=== PATIENT | female | born 1990 | race Caucasian/White ===

== ENCOUNTER 2016-10-09 00:51 | Emergency (ER) | payer SELFPAY ==
--- NOTE | 2016-10-09 02:02 | ED ORDER SUMMARY ---
..... Patient: BENJIE PIERCE OrderSheet [facility] VisitID: [id number] [address] [place] [address] 26y, F Registration Date/Time: 10/09/2016 ORDER SHEET Weight: 77.1 kg Allergies: No Known Drug Allergy GENERAL ORDERS: UA-Culture if indicated Urgent (:10/09/2016 Beck Pierce) (Ack 1:26 Arturo) (1:36 Isabel R.N.) Urine Drug Screen Urgent (:10/09/2016 Beck Pierce) (Ack 1:26 Arturo) (1:36 Isabel R.N.) MEDICATION ORDERS: IV FLUIDS: ORDER SHEET NOTES: [Electronically signed by Avelino Cardenas Dr. (02:03 10/09/2016)] [Electronically signed by Rajesh Ruiz R.N. (06:55 10/09/2016)] [Electronically locked/signed by Rajesh Ruiz R.N. (06:55 10/09/2016)]
--- NOTE | 2016-10-09 02:02 | ED CLINICAL REPORT ---
Clinical Report - Physicians/Mid Levels [facility] [address] [place] [place] [address] 10/09/2016 0:51 Patient: BENJIE PIERCE Time Seen: 00:59; initial patient contact. Arrived- By ambulance. Historian- patient and EMS personnel. HISTORY OF PRESENT ILLNESS Chief Complaint: INTOXICATED. Symptoms started today. Substances abused: Alcohol. Last drink just prior to arrival. No nausea, vomiting, abdominal pain or agitation. The symptoms are described as moderate. No injuries noted. Similar symptoms previously: None. Recent medical care: Not recently seen/assessed. REVIEW OF SYSTEMS No headache, chest pain, back pain, neck pain or alteration in mental status. No dizziness or head injury. All systems otherwise negative, except as recorded above. PAST HISTORY Negative. Problems: no known problems. Surgeries: No history of previous surgery. Additional Surgeries: no known surgeries. Medications: None. Allergies: No Known Drug Allergy. SOCIAL HISTORY Never smoker. Regular alcohol use. No drug use. Has social support. Has place to stay. ADDITIONAL NOTES The nursing notes have been reviewed. PHYSICAL EXAM Vital Signs: 10/09/2016 00:54 BP: 117/76. HR: 74. RR: 14. O2 saturation: 100%. Temp: 98.4 F. Pain level now: 0/10. Have been reviewed as normal. Appearance: Alert. Oriented X3. No acute distress. Head: Head atraumatic. ENT: Airway intact. Dry mucous membranes present. Neck: Normal inspection. Neck supple. CVS: Tachycardia. Heart sounds normal. Rhythm normal. Respiratory: No respiratory distress. Breath sounds normal. Back: Normal inspection. Skin: Skin warm and dry. Normal skin color. No rash. Neuro: Mildly altered mental status. (Intoxicated). LABS, X-RAYS, AND EKG Laboratory Tests: UA-Culture if indicated: (REILLY: 10/09/2016 01:35) ( MsgRcvd 10/09/2016 01:49) Final results Test Result Flag Units (Reference) URINE COLOR YELLOW URINE APPEARANCE CLEAR URINE GLUCOSE NEGATIVE (NEGATIVE) URINE BILIRUBIN NEGATIVE (NEGATIVE) URINE KETONE NEGATIVE (NEGATIVE) URINE SPECIFIC GRAVITY <= 1.005 L (1.010-1.030) URINE PH 6.0 (5.0-8.0) URINE PROTEIN NEGATIVE (NEGATIVE) URINE UROBILINOGEN 0.2 EU/dL (0.2-1.0) URINE NITRITE NEGATIVE (NEGATIVE) URINE BLOOD NEGATIVE (NEGATIVE) URINE LEUK ESTERASE POSITIVE (NEGATIVE) URINE RBC 0-1 rbc/hpf (0-1) URINE WBC 0-1 wbc/hpf (0-1) URINE EPITHELIAL CELLS 0-1 EPI/hpf (0-5) URINE BACTERIA NONE SEEN (NONE SEEN) URINE COMMENT CULTURE INDICATED URINE CULTURES ARE SET-UP BASED ON THE FOLLOWING CRITERIA:POSITIVE NITRITEPOSITIVE LEUKOCYTE ESTERASEGREATER THAN 10 WHITE BLOOD CELLSMODERATE (2+) OR GREATER BACTERIA Urine Drug Screen: (REILLY: 10/09/2016 01:35) ( MsgRcvd 10/09/2016 01:54) Final results Test Result Flag Units (Reference) AMPHETAMINE/METHAMPHETAMINE NEGATIVE (NEGATIVE) BARBITURATE NEGATIVE (NEGATIVE) BENZODIAZEPINE NEGATIVE (NEGATIVE) CANNABINOID NEGATIVE (NEGATIVE) COCAINE NEGATIVE (NEGATIVE) ECSTASY NEGATIVE (NEGATIVE) METHADONE NEGATIVE (NEGATIVE) OPIATE NEGATIVE (NEGATIVE) The urine drug screen is a qualitative screening test fordrug overdose and abuse. All screen results should beconsidered as presumptive.Drugs screened for are as follows:BenzodiazepinesCocaineAmphetamines/MetamphetaminesTHC (Tetrahydrocannabinol)OpiatesBarbituratesEcstasyMethadonePositive results are unconfirmed. For confirmation, notifythe lab for the specimen to be sent to the reference lab.All confirmations must be performed by a differentmethodology.The ingestion of natural herbal and plant productscontaining Ephedra/Ephedra metabolites can produce in urineone or more substances capable of cross reacting withamphetamine/methamphetamine immunoassays. These testsprovide a preliminary result only. A more specificalternative chemical method must be used to obtain aconfirmed analytical result. . PROGRESS AND PROCEDURES Disposition: Discharged home in good and improved condition. Condition: good. CLINICAL IMPRESSION Uncomplicated alcohol intoxication. No alcohol intoxication with delirium or alcohol dependence. INSTRUCTIONS No alcohol. Your Current Medications: CONTINUE TAKING THE FOLLOWING MEDICATIONS: None*. Follow-up: Follow up with your doctor as needed. Screening today revealed the patient's blood pressure to be in the normal range. (Electronically signed by Avelino Cardenas Dr. 10/09/2016 2:03)
--- NOTE | 2016-10-09 02:02 | ED NURSING NOTES ---
Clinical Report - Nurses [place] [address] [place] [address] 10/09/2016 0:51 Patient: BENJIE PIERCE TRIAGE Triage time 00:54. Acuity: LEVEL 4. Chief Complaint: DIZZINESS. --00:57 TonyaB, R.N. 00:54 10/09/16. BP: 117/76. HR: 74. RR: 14. O2 saturation: 100%. Temp: 98.4 F. Pain level now: 0/10. --00:57 TonyaB, R.N. Weight: 77.1 kg. Height/Length: 67 inches. BMI: 26.6. --00:56 TonyaB, R.N. Medications None. --00:55 TonyaB, R.N. Allergies No Known Drug Allergy. --00:55 TonyaB, R.N. History Arrived by EMS. Historian: patient. ( pt arrived via ems from [facility] pt was drinking at [facility] and was found slumped over a machine). This started just prior to arrival. 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 PAST MEDICAL HX: Immunizations: up-to-date. Last normal menstrual period was 2 weeks ago. Uses an intrauterine device. SOCIAL HX: Never smoker. Regular alcohol use. No drug use. No infectious disease exposure. SELF HARM ASSESSMENT: A self harm assessment was performed. The patient answered "no" to the question "Have you recently felt down, depressed, or hopeless?", "Have you noticed less interest or pleasure in doing things?", "Do you have thoughts of harming or killing yourself?", "Are you here because you tried to hurt yourself?", "Have you ever tried to hurt yourself before today?", "Have you recently had thoughts about harming or killing others?" and "Do you have any dangerous items in your possession?". FALL RISK ASSESSMENT: Fall risk assessment completed. No fall risk identified. NUTRITIONAL RISK ASSESSMENT: The nutritional risk assessment revealed no deficiencies. FUNCTIONAL ASSESSMENT: Functional assessment: no impairments noted. LEARNING NEEDS ASSESSMENT: The learning needs assessment revealed no barriers. SKIN INTEGRITY ASSESSMENT: Skin integrity risk assessment completed. No skin integrity risk identified. 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 --00:57 Julia Titus PROBLEMS: no known problems. ADDITIONAL SURGERIES: no known surgeries. Interventions ID band on patient. To treatment room. --00:57 Julia Titus PHYSICAL ASSESSMENT To room via stretcher. GENERAL / NEURO / PSYCH: Alert. Oriented X 4. Appears in no acute distress. Mood/affect abnormal. ( pt appears intoxicated). HEENT: Pupils equal, round and reactive to light. No facial asymmetry noted. Mucous membranes are pink. RESPIRATORY: Respirations not labored. Chest nontender. Breath sounds within normal limits. CVS: Normal sinus rhythm noted. Capillary refill less than 2 seconds. Pulses within normal limits. GI / : Abdomen soft and nontender and normal bowel sounds. SKIN: Skin intact. Skin is warm and dry. Normal skin turgor. --00:58 Julia Titus NURSING PROGRESS NOTES BREATHALYZER: Breathalyzer (273). --00:58 Tirso Titus. Pulse oximeter placed on patient. --00:58 Julia Titus 01:25. Care transferred and report received. --01:34 Rajesh Ruiz R.N. 01:[address] [facility] with pt - stand by assist while pt uses BSC. --01:35 Rajesh Ruiz R.N. 01:32. Patient ID band checked for patient name and birthdate: patient confirmed. Clean catch urine collected with return of yellow-colored clear urine; sample sent to lab for urinalysis. Specimen labeled in the presence of the patient. --01:36 Rajesh Ruiz R.N. 02:46. The patient is sleeping. RESPIRATORY: No respiratory distress. SKIN: Skin is warm and dry. Skin color within normal limits. --02:47 Rajesh Ruiz R.N. 02:46 10/09/16. HR: 80. O2 saturation: 97% on room air. --02:47 Rajesh Ruiz R.N. 03:38. The patient is sleeping. RESPIRATORY: No respiratory distress. SKIN: Skin is warm and dry. Skin color within normal limits. --03:39 Rajesh Ruiz R.N. 03:38 10/09/16. HR: 79. O2 saturation: 95%. --03:39 Rajesh Ruiz R.N. 04:41. The patient is sleeping. RESPIRATORY: No respiratory distress. SKIN: Skin is warm and dry. Skin color within normal limits. --04:41 Rajesh Ruiz R.N. 04:40 10/09/16. HR: 77. O2 saturation: 96% on room air. --04:41 Rajesh Ruiz R.N. 05:57. The patient is sleeping. RESPIRATORY: No respiratory distress. SKIN: Skin is warm and dry. Skin color within normal limits. --05:58 Rajesh Ruiz R.N. 05:57 10/09/16. HR: 74. O2 saturation: 98% on room air. --05:58 Rajesh Ruiz R.N. 06:47. The patient is calm and resting quietly. Overall patient status is improved. RESPIRATORY: No respiratory distress. SKIN: Skin is warm and dry. Skin color within normal limits. --06:54 Rajesh Ruiz R.N. DISPOSITION / DISCHARGE Departure time: 06:52. Condition at departure: stable. No learning barriers present. Discharge instructions provided and reviewed with the patient. Patient verbalized understanding. Written instructions provided in Divehi. The patient was discharged home and unaccompanied at time of discharge. She left the Emergency Department ambulatory. FALL RISK ASSESSMENT: Fall risk assessment completed. No fall risk identified. --06:54 Rajesh Ruiz R.N. 06:24 10/09/16. BP: 104/62. HR: 83. RR: 14. O2 saturation: 100% on room air. Pain level now: 0/10. --06:54 Rajesh Riuz R.N. Locked/Released at 10/09/2016 6:55 by Rajesh Ruiz R.N.
--- NOTE | 2016-10-09 02:02 | ED NURSING NOTES ---
Clinical Report - Nurses [place] [address] [place] [address] 10/09/2016 0:51 Patient: BENJIE PIERCE TRIAGE Triage time 00:54. Acuity: LEVEL 4. Chief Complaint: DIZZINESS. --00:57 TonyaB, R.N. 00:54 10/09/16. BP: 117/76. HR: 74. RR: 14. O2 saturation: 100%. Temp: 98.4 F. Pain level now: 0/10. --00:57 TonyaB, R.N. Weight: 77.1 kg. Height/Length: 67 inches. BMI: 26.6. --00:56 TonyaB, R.N. Medications None. --00:55 TonyaB, R.N. Allergies No Known Drug Allergy. --00:55 TonyaB, R.N. History Arrived by EMS. Historian: patient. ( pt arrived via ems from [facility] pt was drinking at [facility] and was found slumped over a machine). This started just prior to arrival. 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 PAST MEDICAL HX: Immunizations: up-to-date. Last normal menstrual period was 2 weeks ago. Uses an intrauterine device. SOCIAL HX: Never smoker. Regular alcohol use. No drug use. No infectious disease exposure. SELF HARM ASSESSMENT: A self harm assessment was performed. The patient answered "no" to the question "Have you recently felt down, depressed, or hopeless?", "Have you noticed less interest or pleasure in doing things?", "Do you have thoughts of harming or killing yourself?", "Are you here because you tried to hurt yourself?", "Have you ever tried to hurt yourself before today?", "Have you recently had thoughts about harming or killing others?" and "Do you have any dangerous items in your possession?". FALL RISK ASSESSMENT: Fall risk assessment completed. No fall risk identified. NUTRITIONAL RISK ASSESSMENT: The nutritional risk assessment revealed no deficiencies. FUNCTIONAL ASSESSMENT: Functional assessment: no impairments noted. LEARNING NEEDS ASSESSMENT: The learning needs assessment revealed no barriers. SKIN INTEGRITY ASSESSMENT: Skin integrity risk assessment completed. No skin integrity risk identified. --00:57 Julia Titus Treatment COLD HEADER: See EMS report. --00:57 Julia Titus PROBLEMS: no known problems. ADDITIONAL SURGERIES: no known surgeries. Interventions ID band on patient. To treatment room. --00:57 Julia Titus PHYSICAL ASSESSMENT To room via stretcher. GENERAL / NEURO / PSYCH: Alert. Oriented X 4. Appears in no acute distress. Mood/affect abnormal. ( pt appears intoxicated). HEENT: Pupils equal, round and reactive to light. No facial asymmetry noted. Mucous membranes are pink. RESPIRATORY: Respirations not labored. Chest nontender. Breath sounds within normal limits. CVS: Normal sinus rhythm noted. Capillary refill less than 2 seconds. Pulses within normal limits. GI / : Abdomen soft and nontender and normal bowel sounds. SKIN: Skin intact. Skin is warm and dry. Normal skin turgor. --00:58 Julia Titus NURSING PROGRESS NOTES BREATHALYZER: Breathalyzer (273). --00:58 Tirso Titus. Pulse oximeter placed on patient. --00:58 Julia Titus 01:25. Care transferred and report received. --01:34 Rajesh Ruiz R.N. 01:28 [facility] with pt - stand by assist while pt uses BSC. --01:35 Rajesh Ruiz R.N. 01:32. Patient ID band checked for patient name and birthdate: patient confirmed. Clean catch urine collected with return of yellow-colored clear urine; sample sent to lab for urinalysis. Specimen labeled in the presence of the patient. --01:36 Rajesh Ruiz R.N. 02:46. The patient is sleeping. RESPIRATORY: No respiratory distress. SKIN: Skin is warm and dry. Skin color within normal limits. --02:47 Rajesh Ruiz R.N. 02:46 10/09/16. HR: 80. O2 saturation: 97% on room air. --02:47 Rajesh Ruiz R.N. 03:38. The patient is sleeping. RESPIRATORY: No respiratory distress. SKIN: Skin is warm and dry. Skin color within normal limits. --03:39 Rajesh Ruiz R.N. 03:38 10/09/16. HR: 79. O2 saturation: 95%. --03:39 Rajesh Ruiz R.N. 04:41. The patient is sleeping. RESPIRATORY: No respiratory distress. SKIN: Skin is warm and dry. Skin color within normal limits. --04:41 Rajesh Ruiz R.N. 04:40 10/09/16. HR: 77. O2 saturation: 96% on room air. --04:41 Rajesh Ruiz R.N. 05:57. The patient is sleeping. RESPIRATORY: No respiratory distress. SKIN: Skin is warm and dry. Skin color within normal limits. --05:58 Rajesh Ruiz R.N. 05:57 10/09/16. HR: 74. O2 saturation: 98% on room air. --05:58 Rajesh Ruiz R.N. 06:47. The patient is calm and resting quietly. Overall patient status is improved. RESPIRATORY: No respiratory distress. SKIN: Skin is warm and dry. Skin color within normal limits. --06:54 Rajesh Ruiz R.N. DISPOSITION / DISCHARGE Departure time: 06:52. Condition at departure: stable. No learning barriers present. Discharge instructions provided and reviewed with the patient. Patient verbalized understanding. Written instructions provided in Swedish. The patient was discharged home and unaccompanied at time of discharge. She left the Emergency Department ambulatory. FALL RISK ASSESSMENT: Fall risk assessment completed. No fall risk identified. --06:54 Rajesh Ruiz R.N. 06:24 10/09/16. BP: 104/62. HR: 83. RR: 14. O2 saturation: 100% on room air. Pain level now: 0/10. --06:54 Rajesh Ruiz R.N. Locked/Released at 10/09/2016 6:55 by Rajesh Ruiz R.N.
--- NOTE | 2016-10-09 02:02 | ED ORDER SUMMARY ---
..... Patient: BENJIE PIERCE OrderSheet [facility] VisitID: [id number] [address] [place] [address] 26y, F Registration Date/Time: 10/09/2016 ORDER SHEET Weight: 77.1 kg Allergies: No Known Drug Allergy GENERAL ORDERS: UA-Culture if indicated Urgent (:10/09/2016 Beck Pierce) (Ack 1:26 Arturo) (1:36 Isabel R.N.) Urine Drug Screen Urgent (:10/09/2016 Beck Pierce) (Ack 1:26 Arturo) (1:36 Isabel R.N.) MEDICATION ORDERS: IV FLUIDS: ORDER SHEET NOTES: [Electronically signed by Avelino Cardenas Dr. (02:03 10/09/2016)] [Electronically signed by Rajesh Ruiz R.N. (06:55 10/09/2016)] [Electronically locked/signed by Rajesh Ruiz R.N. (06:55 10/09/2016)]
--- NOTE | 2016-10-09 06:55 | ED MAR SUMMARY ---
..... Medication Administration Record [facility] [address], [place] [id number] Patient: BENJIE IPERCE Visit ID: [id number] 26y, F Weight: 77.1 kg Height/Length: 67 in BMI: 26.6 ALLERGIES: No Known Drug Allergy
--- NOTE | 2016-10-09 06:55 | ED MED RECONCILIATION SUMMARY ---
Patient: BENJIE PIERCE Medication Reconciliation Report [facility] VisitID: [id number] [address] [place] [address] 26y, F Registration Date/Time: 10/09/2016 Weight: 77.1 kg Height/Length: 67 in. BMI: 26.6 ALLERGIES: No Known Drug Allergy The patient's Home Medications are listed below: NONE. The source(s) of the original Home Medication information: Not obtained. The following Medications were given to the patient in the Emergency Department: None. The following Medications were prescribed to the patient: None.
--- NOTE | 2016-10-09 06:55 | ED MED RECONCILIATION SUMMARY ---
Patient: BENJIE PIERCE Medication Reconciliation Report [facility] VisitID: [id number] [address] [place] [address] 26y, F Registration Date/Time: 10/09/2016 Weight: 77.1 kg Height/Length: 67 in. BMI: 26.6 ALLERGIES: No Known Drug Allergy The patient's Home Medications are listed below: NONE. The source(s) of the original Home Medication information: Not obtained. The following Medications were given to the patient in the Emergency Department: None. The following Medications were prescribed to the patient: None.
--- NOTE | 2016-10-09 06:55 | ED DISCHARGE INSTRUCTIONS ---
Patient: BENJIE PIERCE General Instructions [facility] VisitID: [id number] [place] [address] 26y, F Registration Date/Time: 10/09/2016 Uncomplicated alcohol intoxication. No alcohol intoxication with delirium or alcohol dependence. INSTRUCTIONS No alcohol. Your Current Medications: CONTINUE TAKING THE FOLLOWING MEDICATIONS: None*. Follow-up: Follow up with your doctor as needed. Screening today revealed the patient's blood pressure to be in the normal range. ADDITIONAL INFORMATION Alcohol Intoxication Alcohol intoxication occurs when you drink alcohol faster than your liver can remove it from your system. Alcohol intoxication affects your judgment and coordination. Very high blood alcohol levels can cause coma, very slow breathing and even . If you drink alcohol every day, this may gradually cause permanent damage to your liver, brain, heart, pancreas and other organs. Alcohol use during may cause permanent damage to the growing baby. Home Care: Do not drink any more alcohol. DO NOT DRIVE until all effects of the alcohol have worn off. Get lots of rest over the next few days. Drink plenty of water and other non-alcoholic liquids. Try to eat regular meals. If you have been drinking heavily on a daily basis, you may go through alcohol withdrawl. This is also called the shakes or DTs. The usual symptoms last 3 to 4 days and may include nervousness, shakiness, nausea, sweating or sleeplessness. During this time, it is best that you stay with family or friends who can help and support you. You can also admit yourself to a residential detox program. If your symptoms are severe, contact your doctor for medicines to help. Follow Up: If alcohol is causing a problem in your life, these and other organizations can help you: Alcoholics Anonymous offers support through a self-help fellowship. There are no dues or fees. See the Yellow Pages and call for time and place of meetings. www.aa.org Mary offers support to families of alcohol users. 545.419.8175 www.al-anon.org National [place] On Alcoholism And Drug Dependence 437-793-8442 www.ncadd.org There are also inpatient or residential alcohol detox programs. Check the Internet or phonebook Yellow Pages under Drug Abuse & Treatment Centers. Get Prompt Medical Attention if any of the following occur: there) You have been given the following additional information: Alcohol Intoxication (Electronically signed by Avelino Cardenas Dr. 10/09/2016 2:03)
--- NOTE | 2016-10-09 06:55 | ED MAR SUMMARY ---
..... Medication Administration Record [facility] [address] [place], [place] [id number] Patient: BENJIE PIERCE Visit ID: [id number] 26y, F Weight: 77.1 kg Height/Length: 67 in BMI: 26.6 ALLERGIES: No Known Drug Allergy
--- NOTE | 2016-10-09 06:55 | ED DISCHARGE INSTRUCTIONS ---
Patient: BENJIE PIERCE General Instructions [facility] VisitID: [id number] [place] [address] 26y, F Registration Date/Time: 10/09/2016 Uncomplicated alcohol intoxication. No alcohol intoxication with delirium or alcohol dependence. INSTRUCTIONS No alcohol. Your Current Medications: CONTINUE TAKING THE FOLLOWING MEDICATIONS: None*. Follow-up: Follow up with your doctor as needed. Screening today revealed the patient's blood pressure to be in the normal range. ADDITIONAL INFORMATION Alcohol Intoxication Alcohol intoxication occurs when you drink alcohol faster than your liver can remove it from your system. Alcohol intoxication affects your judgment and coordination. Very high blood alcohol levels can cause coma, very slow breathing and even . If you drink alcohol every day, this may gradually cause permanent damage to your liver, brain, heart, pancreas and other organs. Alcohol use during may cause permanent damage to the growing baby. Home Care: Do not drink any more alcohol. DO NOT DRIVE until all effects of the alcohol have worn off. Get lots of rest over the next few days. Drink plenty of water and other non-alcoholic liquids. Try to eat regular meals. If you have been drinking heavily on a daily basis, you may go through alcohol withdrawl. This is also called the shakes or DTs. The usual symptoms last 3 to 4 days and may include nervousness, shakiness, nausea, sweating or sleeplessness. During this time, it is best that you stay with family or friends who can help and support you. You can also admit yourself to a residential detox program. If your symptoms are severe, contact your doctor for medicines to help. Follow Up: If alcohol is causing a problem in your life, these and other organizations can help you: Alcoholics Anonymous offers support through a self-help fellowship. There are no dues or fees. See the Yellow Pages and call for time and place of meetings. www.aa.org Mary offers support to families of alcohol users. 481.298.2237 www.al-anon.org National [place] On Alcoholism And Drug Dependence 137-995-5876 www.ncadd.org There are also inpatient or residential alcohol detox programs. Check the Internet or phonebook Yellow Pages under Drug Abuse & Treatment Centers. Get Prompt Medical Attention if any of the following occur: there) You have been given the following additional information: Alcohol Intoxication (Electronically signed by Avelino Cardenas Dr. 10/09/2016 2:03)
== END 2016-10-09 06:52 | disposition home or self-care (01) ==
LOC: ED SRH 00:51
DX: F10.120 Alcohol abuse with intoxication, uncomplicated (principal)
CPT/HCPCS: 90004; 90469; 92760; 92761; 92762; 92763; 92764; 92765; 92766; 92767